=== PATIENT | male | born 1945 | race Caucasian/White ===

== ENCOUNTER 2022-07-14 20:45 | Emergency (ER) | payer OTHER ==
[~2022-07-14] VITALS: Ht 172.7 cm; Wt 82.0 kg
[2022-07-14 21:16] LABS: BASOPHILS % 0.4 % (0.0-2.0); EOSINOPHILS % 1.3 % (0.0-5.0); HEMATOCRIT. 34.5 % (42.0-52.0); HEMOGLOBIN. 11.3 g/dL (14.0-18.0); LYMPHOCYTES % 20.4 % (20.0-50.0); MEAN CORPUSCULAR HEMOGLOBIN 32.7 pg (28.0-32.0); MEAN CORPUSCULAR VOLUME 99.8 fL (80.0-94.0); MEAN PLATELET VOLUME 10.5 fl (7.4-10.4); MONOCYTES % 11.1 % (2.0-8.0); NEUTROPHILS % 66.8 % (40.0-76.0); PLATELET 93 x1000/uL (130-400); RED BLOOD CELL COUNT 3.45 mill/uL (4.7-6.1); RED CELL DISTRIBUTION WIDTH 15.1 % (11.6-14.6)
[2022-07-14 21:23] LABS: CHLORIDE 109 mEq/L (98-107)
[2022-07-14] MEDS: IPRATROPIUM BROMIDE (0.02%) 0.5MG/2.5ML NEB HHN NR (23:20)
[2022-07-14] MEDS: ALBUTEROL (0.083%) 2.5MG/3ML NEB HHN NR (23:20)
[2022-07-14] MEDS: PREDNISONE 20MG TABLET PO NR (23:47)
[2022-07-14] MEDS: ASPIRIN 325MG EC TABLET PO NR (23:48)
[2022-07-14] MEDS: FUROSEMIDE 40MG/4ML VIAL IVP NR (23:56)
[2022-07-14] MEDS: MAGNESIUM 2 G PREMIX 50 ML IV NR (23:56)
[2022-07-15 03:30] VITALS: BP 151/93
== END 2022-07-15 04:35 | disposition short-term general hospital (02) ==
LOC: ER 20:45 → CANBEDREQ 07-16 04:04
DX: J44.1 Chronic obstructive pulmonary disease with (acute) exacerbation (principal); I11.0 Hypertensive heart disease with heart failure; I50.9 Heart failure, unspecified; F17.200 Nicotine dependence, unspecified, uncomplicated; Z20.822 Contact with and (suspected) exposure to COVID-19
CPT/HCPCS: 36415; 71045; 80053; 83880; 84484; 85025; 87426; 93005; 94640; 96365; 96375; 99291; J1940; J3475; J7512